=== PATIENT | female | born 1985 | race Caucasian/White ===

== ENCOUNTER 2017-01-16 08:53 | Emergency (ER) | payer SELFPAY ==
--- NOTE | 2017-01-17 13:55 | ER ---
ADMIT: 01/16/2017 RM/LOC: ER [facility] MR#: [id number] [address] [facility] [address] [place], [place] [id number] JACQUELINE AMNA [address] [place] [address] Emergency Room Report SEX: F AGE: 31 : 1985 DATE: 01/16/2017 PRIMARY PROVIDER: Joie Dickerson. HISTORY OF PRESENT ILLNESS: The patient is a 31-year-old female, who says she has had one day of flare-up of her sciatica. 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 She has got five kids at home. She says the pain is so bad. She has done everything that she knows to help herself, but unable to really have some relief. PAST MEDICAL HISTORY: Kidney stones and sciatica. She has had rhinoplasty and tubal ligation. PHYSICAL EXAMINATION: VITAL SIGNS: On examination, vitals are within normal limits. She is afebrile. BACK: She has no costovertebral tenderness, however she does have right lumbar and mid buttocks area tenderness. Physical examination rest of it is within normal limits. LABORATORY DATA: UA shows 55 RBCs and blood 2+. She denies being her periods. I suspect that she may have kidney stones as well, but she says every time she gets some, she does presents with costovertebral angle tenderness and she does not have any pain there now. She was given prednisone for home and [place] for pain control in the ER. She was given a shot of Toradol and Nubain. She has instructions to follow up and her sister will be picking her up. As she is instructed not to drive today due to the medication she was given in the emergency room. The patient verbalized understanding. HERBERT Rosado / Renato Bales MD / rick JOB #: [id number] CC: Renato Bales MD, Attending Physician Franco Black MD, Family Physician
--- NOTE | 2017-01-17 13:55 | ER ---
ADMIT: 01/16/2017 RM/LOC: ER [facility] MR#: [id number] [id number] [place], [place] [id number] AMNA PHILLIPS [address] [place] [address] Emergency Room Report SEX: F AGE: 31 : 1985 DATE: 01/16/2017 PRIMARY PROVIDER: Joie Dickerson. HISTORY OF PRESENT ILLNESS: The patient is a 31-year-old, who has had issues with sciatica for 5 years. 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 She has done everything possible that she knows to try to help herself, but she has five children at home and she has not been able to do much to contain the pain. She has had tubal ligation and rhinoplasty surgery. On physical examination, she has got her right leg bend at knee to relieve the pressure in the back. Her vitals are within normal limits. She does have a pressure in the mid buttocks area on the right gluteus. Abdomen is nontender, however she is very uncomfortable and she has had kidney stones in the past. So, I am going to go ahead and get a urine check and make sure she does not have stones or hematuria. CLINICAL IMPRESSION: Sciatica. Urine pending. Prednisone for her treatment at home and Toradol and Nubain in the emergency room. HERBERT Rosado / Renato Bales MD / albertl JOB #: [id number] CC: Renato Bales MD, Attending Physician Franco Black MD, Family Physician
== END 2017-01-16 10:45 | disposition home or self-care (01) ==
LOC: ER 08:53
DX: M54.31 Sciatica, right side (principal); Z98.51 Tubal ligation status